=== PATIENT | male | born 1930 | race Caucasian/White ===

== ENCOUNTER → 2016-05-21 | Outpatient (CLI) | payer OTHER, BC ==
[~2016-05-21] VITALS: Ht 177.8 cm; Wt 71.7 kg
[~2016-05-21] MED LIST: ADULT LOW DOSE81 MG PO; ASA5UEC PO; CALCIUM 600 +1 EAC1 PO; CENTRUM SILVER1 EAC7 PO; COZAAR 50 MG TA50 M2 PO; IBUPROFEN 200200 M1 PO; LEVOTHYROXIN0.088 MG PO; LIPITOR 20 MG T20 M1 PO; LIPITOR20 MG PO; LIPITOR40 MG PO; PRILOSEC 20 MG20 MG PO; STOOL SOFTENER100 MG PO; SYNTHROID112 MCG PO; TYLENOL ARTHRI650 MG PO; VERAPAMIL ER300 MG PO
--- NOTE | ~2016-05-21 | S ---
[facility] [place] [address] SURGICAL PATH RPT PROCEDURE Name: ANDREAS FISCHER YURIY Room #: REG ROHAN Gonzalez.#: [id number] Admission: 05/21/16 Date of : 34 Discharge: Report #: [id number] Path Case #: [id number] PATHOLOGY REPORT COLLECTION DATE: 05/21/2016 RECEIVED DATE: 05/21/2016 SUBMITTING PHYS: Dr. Justino Lockett OTHER PHYS: Dr. Meng Watkins SPECIMEN(S) RECEIVED: A.Transverse colon polyp x2 * * * * * * * * * * * * FINAL DIAGNOSIS: "Transverse colon polyp x 2," biopsy: - Tubular adenoma; no high-grade dysplasia. (CLW:; d/t: 05/24/16) PATHOLOGIST: Jodi Monroe M.D. REPORT ELECTRONICALLY SIGNED BY: Jodi Monroe M.D. DATE/TIME: 05/24/2016 14:51 * * * * * * * * * * * * GROSS PATHOLOGY: Received in formalin labeled "Andreas Fischer and transverse colon," are 4 segments of rodrigues soft tissue measuring 1.1 x 0.3 x 0.2 cm in aggregate dimensions and ranging from 0.2 to 0.3 cm in maximum dimension. The specimen is submitted entirely in cassette A1. (TTL; 05/21/2016) CLINICAL HISTORY: History of polyps, [facility] INITIAL CPT CODE(S): A; 28804 Professional services performed by [facility] at [facility] [address], [place] [address] Technical services performed by [facility] at [address] [place] [address], [address], [place] [address]. [facility] [address] [place] [address] SURGICAL PATH RPT PROCEDURE Name: ANDREAS FISCHER Room #: REG ROHAN Manzo#: [id number] Admission: 05/21/16 Date of : 34 Discharge: Report #: [id number] Path Case #: [id number] [address] PHONE: [phone] DIRECTOR: Stone Milligan M.D. * * * END OF REPORT * * *
--- NOTE | ~2016-05-21 | P ---
[facility] [place] [address] PROCEDURE REPORT Name: ROSE FISCHER YURIY Room #: REG ROHAN Manzo#: [id number] Admission: 05/21/16 Attend Phys: Justino Gibbons Discharge: Date of : 34 Report #: [id number] THIS REPORT FOR: //name// CC: Justino Watkins MD DATE OF SERVICE: 05/21/2016. PROCEDURE PERFORMED: Colonoscopy with biopsies. HISTORY OF PRESENT ILLNESS: The patient is an 85-year-old male with a previous history of colon polyps. Family history of colon cancer in his mother. Last colonoscopy was 5 years ago. He denies any symptoms at this time. DESCRIPTION OF PROCEDURE: The risks and benefits of the procedure were explained to the patient, those risks including but not limited to bleeding, perforation, the risk of sedation. He understood these risks and gave informed consent. Sedation was given using propofol per anesthesia. Next, a digital rectal exam was initially performed, which is normal other than enlarged prostate. Next, using a standard Competen colonoscope, the scope was placed in the patient's anus and advanced under direct vision to the cecum. The overall prep was fair in areas, but most areas were fairly well visualized. The cecum and ileocecal valve were normal in appearance. The ascending colon was normal. In the transverse colon, two 4 mm sessile polyps were noted, both were removed with cold forceps, otherwise normal. Descending colon was normal. Multiple diverticula were noted in the sigmoid colon, no evidence of inflammation, otherwise normal. The rectal mucosa was normal. On retroflexion, small nonbleeding internal hemorrhoids were noted, otherwise normal colonoscopy. The scope was then withdrawn and the procedure terminated. The patient tolerated the procedure well. IMPRESSION: 1. Two small colonic polyps. 2. Sigmoid diverticulosis. 3. Internal hemorrhoids. 4. Otherwise, normal colonoscopy. RECOMMENDATIONS: Await biopsy results. Thank you for allowing me to participate in his care. <ELECTRONICALLY SIGNED> By: Justino Lockett MD 05/24/16 [id number] Justino Lockett MD /nt
== END | disposition home or self-care (01) ==
LOC: GI 07:02
DX: D12.3 Benign neoplasm of transverse colon (principal); K57.30 Diverticulosis of large intestine without perforation or abscess without bleeding; I10 Essential (primary) hypertension; E78.00 Pure hypercholesterolemia, unspecified; K64.8 Other hemorrhoids; K21.9 Gastro-esophageal reflux disease without esophagitis; Z80.0 Family history of malignant neoplasm of digestive organs; Z87.891 Personal history of nicotine dependence; Z98.890 Other specified postprocedural states; Z85.828 Personal history of other malignant neoplasm of skin
CPT/HCPCS: 62110; 62900